=== PATIENT | female | born 1940 | race Caucasian/White ===

== ENCOUNTER 2020-10-03 14:04 | Inpatient (IN) | payer MEDICARE, OTHER ==
--- NOTE | 2020-10-03 15:35 | EDM.PDOC ---
<Tal Torres Brenda - Last Filed: 10/03/20 16:52> ED HPI GENERAL MEDICAL PROBLEM - General Chief Complaint: Cardiovascular Problem Stated Complaint: HEART ISSUES Time Seen by Provider: 10/03/20 15:00 Source of Information: Reports: Patient History Limitations: Reports: No Limitations - History of Present Illness INITIAL COMMENTS - FREE TEXT/NARRATIVE: 80 y/o F c/o chest tightness and sob x 2 days. Pt states she took 2 nitros yesterday with no change in cp. THe pain is constant across the lower R rib cage and non radiating. The sob is constant worse with movement and associated with a productive cough with white sputum. Hx of 1 vessel bypass 5+ years ago. Denies fever, cough, chills, drugs, etoh, abd pn, extremity pain, recent trauma. 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, IV/IO Chest Pain Score (Numeric/FACES): 7 - Related Data Allergies Allergy/AdvReac Type Severity Reaction Status Date / Time acetaminophen [From Percocet] Allergy Vomiting Verified 10/03/20 14:36 oxycodone HCl [From Percocet] Allergy Vomiting Verified 10/03/20 14:36 Home Meds: Home Meds Albuterol [Proventil Neb Soln] 1.25 mg NEB Q6HRRT PRN 09/04/15 [History] Aspirin 81 mg PO BRK 09/04/15 [History] Fluticasone Propion/Salmeterol [Advair 250-50 Diskus] 1 unit INH BID 09/04/15 [History] Levofloxacin 500 mg PO DAILY 09/04/15 [History] Nitroglycerin [IJP: Nitroglycerin] 0.4 mg SL ASDIRECTED PRN 09/04/15 [History] Triamterene/Hydrochlorothiazid [Triamterene-HCTZ 37.5-25 MG] 37.5 mg PO BID 09/04/15 [History] atenoloL [Atenolol] 50 mg PO DAILY 09/04/15 [History] Past Medical History HEENT History: Reports: Impaired Vision Cardiovascular History: Reports: Bypass, CAD, Heart Failure, High Cholesterol, Hypertension, [place], SOB on Exertion Respiratory History: Reports: Asthma, Bronchitis, Recurrent, COPD, Pneumonia, Recurrent Gastrointestinal History: Reports: Hiatal Hernia Genitourinary History: Reports: None 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: Musculoskeletal History: Reports: None Neurological History: Reports: None Psychiatric History: Reports: None Endocrine/Metabolic History: Reports: None Hematologic History: Reports: Blood Transfusion(s) Oncologic (Cancer) History: Reports: Breast, Other (See Below) Other Oncologic History: padmini mastectomy Dermatologic History: Reports: None - Infectious Disease History Infectious Disease History: Reports: None - Past Surgical History Head Surgeries/Procedures: Reports: None HEENT Surgical History: Reports: Cataract Surgery Cardiovascular Surgical History: Reports: Coronary Artery Bypass, Other (See Below) Other Cardiovascular Surgeries/Procedures: endarterectomy 2 years ago GI Surgical History: Reports: Colonoscopy, EGD Oncologic Surgical History: Reports: Mastectomy Social & Family History - Family History Family Medical History: No Pertinent Family History - Tobacco Use Tobacco Use Status *Q: Former Tobacco User Years of Tobacco use: 20 Packs/Tins Daily: 0 Used Tobacco, but Quit: Yes Month/Year Tobacco Last Used: - Caffeine Use Caffeine Use: Reports: Coffee - Recreational Drug Use Recreational Drug Use: No ED ROS GENERAL - Review of Systems Review Of Systems: Comprehensive ROS is negative, except as noted in HPI. ED EXAM, GENERAL - Physical Exam Exam: See Below Exam Limited By: No Limitations General Appearance: Alert, No Apparent Distress Eye Exam: Bilateral Eye: PERRL Nose: Normal Inspection, Normal Mucosa, No Blood Throat/Mouth: Normal Inspection, Normal Lips, Normal Teeth, Normal Gums, Normal Oropharynx, Normal Voice, No Airway Compromise Head: Atraumatic, Normocephalic Neck: Normal Inspection, Supple, Non-Tender Respiratory/Chest: Other (lungs diminshed throughout with expiratory wheezes and rhonci) Cardiovascular: Regular Rate, Rhythm, No Edema, No JVD Peripheral Pulses: 1+: Dorsalis Pedis (L), Dorsalis Pedis (R), 2+: Radial (L), Radial (R) GI/Abdominal: Soft, Non-Tender (Female) Exam: Deferred Rectal (Female) Exam: Deferred Back Exam: Normal Inspection, Full Range of Motion Extremities: Normal Inspection, Normal Range of Motion, Non-Tender, No Pedal Edema, Normal Capillary Refill Neurological: Alert, Oriented, Normal Cognition Psychiatric: Normal Affect, Normal Mood Skin Exam: Warm, Dry, Intact #1 Interpretation EKG Date: 10/03/20 Time: 14:23 Rhythm: Other (sinus) [place]: LAD-Left [place] Deviation P-Wave: Enlarged QRS: Other (ivcd) ST-T: Normal QT: Normal EKG Interpretation Comments: sinus with PVCs, RAH, LVH, Departure - Departure Disposition: Admitted As Inpatient 66 Clinical Impression: Hyponatremia, Hypokalemia, Atypical chest pain Sepsis Event Note (ED) - Evaluation Sepsis Screening Result: No Definite Risk <Ken Siddiqi - Last Filed: 10/03/20 21:14> Course - Vital Signs Text/Narrative:: Patient was endorsed at shift change, is an 80-year-old female who is frail in nature who presents emergency department today with complaint of chest pain. Patient has a bandlike chest pain around the lower part of her chest. She reports she took 2 nitroglycerin at home and had no improvement in symptoms. The patient was worked up here was found to have an EKG which showed no STEMI patient does have a left bundle block block she has an inverted T wave in aVL V1 and V2, patient was found to be severely hyponatremic and was started on hypertonic saline. The patient's daughter is now here we discussed at length with the patient's daughter about her symptoms, the patient's daughter reports t hat the patient started having a cough approximately 1 week ago and has had white productive sputum since, the patient confirms this, the patient has a negative Covid here did have a CT of the chest which shows no pulmonary infiltrates, the patient had a troponin earlier which was negative, we attempted to transfer the patient for severe hyponatremia to [facility], [facility], and [facility] all of these facilities were at capacity, we will repeat the troponin we discussed the case with Dr. Mitchell who graciously accepts the patient into admission here Last Recorded V/S: Last Vital Signs Temp 97 F 10/03/20 19:39 Pulse 88 10/03/20 19:39 Resp 20 10/03/20 19:39 BP 124/60 10/03/20 19:39 Pulse Ox 100 10/03/20 19:39 - Orders/Labs/Meds Orders: Active Orders 24 hr Category Date Time Status CULTURE BLOOD [BC] Stat Lab 10/03/20 16:19 Received Labs: Laboratory Tests 10/03/20 10/03/20 10/03/20 Range/Units 14:24 14:24 14:24 WBC 15.3 H (5.0-10.0) 10^3/uL RBC 5.24 (4.2-5.4) 10^6/uL Hgb 14.6 D (12.0-16.0) g/dL Hct 40.1 (37.0-47.0) % MCV 76.5 L D (80-100) fL MCH 27.9 (27.0-34.0) pg MCHC 36.4 H (33.0-35.0) g/dL Plt Count 445 D (150-450) 10^3/uL Neut % (Auto) 83.3 H (42.2-75.2) % Lymph % (Auto) 7.8 L (20.5-50.1) % [place] % (Auto) 8.8 H (2-8) % Eos % (Auto) 0.0 L (1.0-3.0) % Baso % (Auto) 0.1 (0.0-1.0) % PT 11.2 (9.0-12.0) SEC INR 1.1 (0.9-1.2) D-Dimer, Quantitative 2910 H (0-400) ng/mL Sodium 113 L* (136-145) mmol/L Potassium 2.8 L (3.5-5.1) mmol/L Chloride 73 L (98-107) mmol/L Carbon Dioxide 32 (21-32) mmol/L Anion Gap 10.8 (7-13) mEq/L BUN 31 H (7-18) mg/dL Creatinine 0.99 (0.55-1.02) mg/dL Est Cr Clr Drug Dosing 31.77 mL/min Estimated GFR (MDRD) 54 BUN/Creatinine Ratio 31.3 (No establ ref range) Glucose 168 H (70-99) mg/dL Lactic Acid (0.4-2.0) mmol/L Calcium 9.9 (8.5-10.1) mg/dL Magnesium (1.8-2.4) mg/dL Total Bilirubin 1.1 H (0.2-1.0) mg/dL AST 32 (15-37) U/L ALT 29 (14-59) U/L Alkaline Phosphatase 66 (46-116) U/L Troponin I High Sens 12 (<=51) pg/mL Total Protein 7.1 (6.4-8.2) g/dL Albumin 3.8 (3.4-5.0) g/dL Globulin 3.3 Albumin/Globulin Ratio 1.2 Urine Color (YELLOW) Urine Appearance (CLEAR) Urine pH (5.0-9.0) Ur Specific [place] (1.005-1.030) Urine Protein (NEGATIVE) Urine Glucose (UA) (NEGATIVE) Urine Ketones (NEGATIVE) Urine Occult Blood (NEGATIVE) Urine Nitrite (NEGATIVE) Urine Bilirubin (NEGATIVE) Urine Urobilinogen (0.2-1.0) mg/dL Ur Leukocyte Esterase (NEGATIVE) Urine RBC (0-5) /HPF Urine WBC (0-5/HPF) /HPF Ur Epithelial Cells (NOT SEEN) /HPF Amorphous Sediment (NOT SEEN) /HPF Urine Bacteria (0-FEW/HPF) /HPF Urine Mucus (NOT SEEN) /LPF Influenza Type A RNA (NEGATIVE) Influenza Type B RNA (NEGATIVE) SARS-CoV-2 RNA (LEI) (NEGATIVE) 10/03/20 10/03/20 10/03/20 Range/Units 14:24 14:24 16:50 WBC (5.0-10.0) 10^3/uL RBC (4.2-5.4) 10^6/uL Hgb (12.0-16.0) g/dL Hct (37.0-47.0) % MCV (80-100) fL MCH (27.0-34.0) pg MCHC (33.0-35.0) g/dL Plt Count (150-450) 10^3/uL Neut % (Auto) (42.2-75.2) % Lymph % (Auto) (20.5-50.1) % Charl[place] % (Auto) (2-8) % Eos % (Auto) (1.0-3.0) % Baso % (Auto) (0.0-1.0) % PT (9.0-12.0) SEC INR (0.9-1.2) D-Dimer, Quantitative (0-400) ng/mL Sodium (136-145) mmol/L Potassium (3.5-5.1) mmol/L Chloride (98-107) mmol/L Carbon Dioxide (21-32) mmol/L Anion Gap (7-13) mEq/L BUN (7-18) mg/dL Creatinine (0.55-1.02) mg/dL Est Cr Clr Drug Dosing mL/min Estimated GFR (MDRD) BUN/Creatinine Ratio (No establ ref range) Glucose (70-99) mg/dL Lactic Acid 2.2 H* (0.4-2.0) mmol/L Calcium (8.5-10.1) mg/dL Magnesium 1.3 L (1.8-2.4) mg/dL Total Bilirubin (0.2-1.0) mg/dL AST (15-37) U/L ALT (14-59) U/L Alkaline Phosphatase (46-116) U/L Troponin I High Sens (<=51) pg/mL Total Protein (6.4-8.2) g/dL Albumin (3.4-5.0) g/dL Globulin Albumin/Globulin Ratio Urine Color Yellow (YELLOW) Urine Appearance Slightly cloudy (CLEAR) Urine pH 7.0 (5.0-9.0) Ur Specific [place] 1.025 (1.005-1.030) Urine Protein Negative (NEGATIVE) Urine Glucose (UA) Negative (NEGATIVE) Urine Ketones 15 H (NEGATIVE) Urine Occult Blood Trace-intact H (NEGATIVE) Urine Nitrite Negative (NEGATIVE) Urine Bilirubin Negative (NEGATIVE) Urine Urobilinogen 0.2 (0.2-1.0) mg/dL Ur Leukocyte Esterase Negative (NEGATIVE) Urine RBC 0-5 (0-5) /HPF Urine WBC 0-5 (0-5/HPF) /HPF Ur Epithelial Cells Rare (NOT SEEN) /HPF Amorphous Sediment Few (NOT SEEN) /HPF Urine Bacteria Few (0-FEW/HPF) /HPF Urine Mucus Not seen (NOT SEEN) /LPF Influenza Type A RNA (NEGATIVE) Influenza Type B RNA (NEGATIVE) SARS-CoV-2 RNA (LEI) (NEGATIVE) 10/03/20 10/03/20 10/03/20 Range/Units 16:51 18:30 20:45 WBC (5.0-10.0) 10^3/uL RBC (4.2-5.4) 10^6/uL Hgb (12.0-16.0) g/dL Hct (37.0-47.0) % MCV (80-100) fL MCH (27.0-34.0) pg MCHC (33.0-35.0) g/dL Plt Count (150-450) 10^3/uL Neut % (Auto) (42.2-75.2) % Lymph % (Auto) (20.5-50.1) % [place] % (Auto) (2-8) % Eos % (Auto) (1.0-3.0) % Baso % (Auto) (0.0-1.0) % PT (9.0-12.0) SEC INR (0.9-1.2) D-Dimer, Quantitative (0-400) ng/mL Sodium (136-145) mmol/L Potassium (3.5-5.1) mmol/L Chloride (98-107) mmol/L Carbon Dioxide (21-32) mmol/L Anion Gap (7-13) mEq/L BUN (7-18) mg/dL Creatinine (0.55-1.02) mg/dL Est Cr Clr Drug Dosing mL/min Estimated GFR (MDRD) BUN/Creatinine Ratio (No establ ref range) Glucose (70-99) mg/dL Lactic Acid 1.3 (0.4-2.0) mmol/L Calcium (8.5-10.1) mg/dL Magnesium (1.8-2.4) mg/dL Total Bilirubin (0.2-1.0) mg/dL AST (15-37) U/L ALT (14-59) U/L Alkaline Phosphatase (46-116) U/L Troponin I High Sens 28 (<=51) pg/mL Total Protein (6.4-8.2) g/dL Albumin (3.4-5.0) g/dL Globulin Albumin/Globulin Ratio Urine Color (YELLOW) Urine Appearance (CLEAR) Urine pH (5.0-9.0) Ur Specific [place] (1.005-1.030) Urine Protein (NEGATIVE) Urine Glucose (UA) (NEGATIVE) Urine Ketones (NEGATIVE) Urine Occult Blood (NEGATIVE) Urine Nitrite (NEGATIVE) Urine Bilirubin (NEGATIVE) Urine Urobilinogen (0.2-1.0) mg/dL Ur Leukocyte Esterase (NEGATIVE) Urine RBC (0-5) /HPF Urine WBC (0-5/HPF) /HPF Ur Epithelial Cells (NOT SEEN) /HPF Amorphous Sediment (NOT SEEN) /HPF Urine Bacteria (0-FEW/HPF) /HPF Urine Mucus (NOT SEEN) /LPF Influenza Type A RNA Negative (NEGATIVE) Influenza Type B RNA Negative (NEGATIVE) SARS-CoV-2 RNA (LEI) Negative (NEGATIVE) Meds: Medications Discontinued Medications Generic Name Dose Route Start Last Admin Trade Name Freq PRN Reason Stop Dose Admin Sodium Chloride 500 mls @ 200 mls/hr 10/03/20 18:26 10/03/20 18:50 Sodium Chloride 3% IV 10/03/20 20:55 200 mls/hr ONETIME ONE Administration Iopamidol 100 ml 10/03/20 16:48 10/03/20 17:08 Iopamidol 755 Mg/Ml 100 Ml Bottle IVPUSH 10/03/20 16:49 100 ml ONETIME ONE Administration Metoclopramide HCl 10 mg 10/03/20 16:54 10/03/20 17:06 Metoclopramide 10 Mg/2 Ml Sdv IVPUSH 10/03/20 16:55 10 mg ONETIME ONE Administration Ondansetron HCl 4 mg 10/03/20 20:15 10/03/20 20:22 Ondansetron 4 Mg/2 Ml Sdv IVPUSH 10/03/20 20:16 4 mg ONETIME ONE Administration Potassium Chloride 40 meq 10/03/20 19:21 10/03/20 19:38 Potassium Chloride 10 Meq Tab.Er PO 10/03/20 19:22 40 meq ONETIME ONE Administration Departure - Departure Time of Disposition: 21:11 Condition: Fair Sepsis Event Note (ED) - Focused Exam Vital Signs: Vital Signs Temp Pulse Resp BP Pulse Ox 10/03/20 19:39 97 F 88 20 124/60 100 10/03/20 14:36 184/92 H 10/03/20 14:19 96.6 F L 87 24 H 100
--- NOTE | 2020-10-03 15:45 | CR ---
EXAMINATION: Chest 1V Frontal SEX: Female AGE: 80 years CLINICAL HISTORY: 80-year-old female with chest pain. Comparison exam 20 May 2009. Interpretation: Sternotomy. Osteoporosis, dorsolumbar scoliosis and hypertrophic spondylosis of the spine. Bilateral mastectomy. Normal cardiac silhouette. No pulmonary vascular congestion, alveolar edema or dependent pleural effusion. No new lung mass or hilar lymphadenopathy. No alveolar infiltrate, air bronchograms, or peripheral "groundglass" interstitial lung densities. No pneumothorax or pneumomediastinum. No free subdiaphragmatic air. AP bony thorax unremarkable. CONCLUSION: No acute new cardiopulmonary abnormality since May 2009 comparison CXR.
[2020-10-03 16:38] LABS: ANION GAP 10.8 mEq/L (7-13)
[2020-10-03] MEDS ORDERED: Iopamidol 755 Mg/ML 100 ML Bottle IVPUSH ONE (16:48)
[2020-10-03] MEDS ORDERED: Metoclopramide 10 MG/2 ML SDV IVPUSH ONE (16:54)
[2020-10-03 17:50] LABS: CORONAVIRUS COVID-19 NAA NEGATIVE (NEGATIVE)
[2020-10-03] MEDS ORDERED: Sodium Chloride 3% 500 ML IV ONE (18:26)
--- NOTE | 2020-10-03 18:47 | CT ---
PROCEDURE INFORMATION: Exam: CT Chest With Contrast; Diagnostic Exam date and time: 10/03/2020 5:50 PM Age: 80 years old Clinical indication: Other: D-dimer 2910, wbc 15.3; Additional info: Short of breath, elevated d-dimer TECHNIQUE: Imaging protocol: Diagnostic computed tomography of the chest with contrast. Radiation optimization: All CT scans at this facility use at least one of these dose optimization techniques: automated exposure control; mA and/or kV adjustment per patient size (includes targeted exams where dose is matched to clinical indication); or iterative reconstruction. Contrast material: [id number]; Contrast volume: 100 ml; Contrast route: INTRAVENOUS (IV); COMPARISON: 1. CT Chest w Cont 09/04/2015 8:20 PM 2. CTA Abd Pelv w Cont 04/15/2020 10:53:15 AM FINDINGS: Lungs: Moderate to severe emphysema. Mild bibasilar scarring. No consolidation or mass. Pleural spaces: Unremarkable. No pneumothorax. No pleural effusion. Heart: No cardiomegaly. No pericardial effusion. Mediastinal space: Small to moderate hiatal hernia. Pulmonary arteries: Nondiagnostic for pulmonary embolism due to poor contrast opacification of the pulmonary arteries. Aorta: The aorta is tortuous and demonstrates severe atherosclerotic calcification. No aortic aneurysm. The visualized portion of the known abdominal aortic aneurysm is grossly similar to the prior study. Lymph nodes: There is no evidence of lymphadenopathy. Adrenal glands: 2.7 cm left adrenal adenoma has not significantly changed compared to 2016. Bones/joints: No acute fracture or dislocation. Sternotomy wires in place. Soft tissues: Postsurgical changes from bilateral mastectomy and axillary node dissection. IMPRESSION: 1. Nondiagnostic for pulmonary embolism due to poor contrast opacification of the pulmonary arteries. 2. Chronic and incidental findings as above.
[2020-10-03] MEDS ORDERED: Potassium Chloride 10 MEQ Tab.ER PO ONE (19:21)
[2020-10-03] MEDS ORDERED: Ondansetron 4 MG/2 ML SDV IVPUSH ONE (20:15)
[2020-10-03] MEDS ORDERED: Sodium Chloride 0.9% 10 ML Syringe FLUSH PRN (22:31)
[2020-10-03] MEDS ORDERED: Acetaminophen 325 MG Tab PO PRN (22:31)
[2020-10-03] MEDS ORDERED: Magnesium Sulfate/Water 4 GM in Premix Bag 1 BAG IV ONE (22:37)
[2020-10-03] MEDS ORDERED: Sodium Chloride 3% 500 ML IV SCH (22:45)
[2020-10-03] MEDS ORDERED: hydrALAZINE 20 MG/ML SDV IVPUSH PRN (22:49)
--- NOTE | 2020-10-03 22:49 | PCM.SN.2 ---
- Free Text/Narrative Note: START OF DOCTOR EMAMIS HISTORY AND PHYSICAL / CONSULTATION NOTE Chief Complaint: Chest pain History of Present Illness: The patient is a 80-year-old female who presents to complain chest pain. The patient is a poor to fair historian at best and not forthcoming with details. She states she started feeling unwell approximately 5 days prior to hospitalization. She admits to onset of cough and symptoms of a cold. She admits to an episode of nausea as well as abdominal pain and dyspnea. The patient has fever, rigors, vomiting, wheeze, diarrhea, myalgia, lightheadedness, dizziness, diaphoresis, palpitations, since his rapid heartbeat, sensation near the heartbeat. She denies peripheral edema. Upon further questioning she indicates that she is having chest pain in the left lower chest describes a pressure. It does not radiate. As worst it rated 5 out of 10 currently rates 2 out of 10. Patient has known history of COPD for which she is O2 dependent 4 L, known history of CHF, and known history of coronary disease status post ND, status post CABG. She presents for further evaluation Surgical History: Right carotid endarterectomy, bilateral cataract surgery, bilateral mastectomy with axillary node dissection, CABG, hysterectomy Family History: Cancer, coronary artery disease, hypertension, hyperlipidemia Social History: Tobacco: Former smoker Alcohol: Denies Caffeine: Coffee Drugs: No known drug allergies Allergies: Patient has documented allergy to Tylenol which she denies. Patient is documented allergy to oxycodone however this causes nausea and this is intolerance not an allergy Code Status: DNI but request cardiac resuscitation pessary Pertinent Laboratory Results / Pertinent Radiology Results / Pertinent Diagnostic Results / Pertinent Vital Signs: Blood pressure 124/60, pulse 88, respirations 20, temperature 9 7 degrees, 1 her percent on 4 L, sodium 113, potassium 2.8, magnesium 1.3, total bilirubin is 1.1, white blood count 15.3, MCV 76.5 Physical Examination: General: -Alert -No acute distress -No dyspnea -No tachypnea -Frail-appearing Head: -Atraumatic -Normocephalic Eyes: -Pupils equally round and reactive to light and accommodation -Extraocular muscles intact Neurological: -Cranial nerves II-XII intact Neck: -No jugular venous distention -No thyromegaly -No cervical lymphadenopathy Heart: -Regular rate -Regular rhythm -No murmurs -No gallops -No rubs Lungs: -Scant bilateral wheeze -No rhonchi -No rales -Distant breath sounds bilaterally Abdomen: -Normal bowel sounds in all four quadrants -No rebound -No guarding -No tenderness Extremities: -2/4 pulse in all four extremities -No clubbing -No cyanosis -No edema -No calf tenderness present bilaterally -Negative Homans sign bilaterally Musculoskeletal: -5/5 bilateral upper extremity strength -5/5 bilateral lower extremity strength -Sensorium of bilateral upper extremities are equal and intact -Sensorium of bilateral lower extremities are equal and intact Additional Details / Additional Findings / Exceptions / Miscellaneous: Assessment / Plan: Chest pain, rule out ACS. Will monitor patient on telemetry and checks her cardiac enzymes and TSH and free T4. Patient is hypomagnesemic. In the morning will check fasting lipid panel and recheck EKG. Aspirin 81 mg p.o. daily plus nitrates 1/2 inch every 6 hours plus metoprolol 5 mg p.o. every 12 hours plus Lipitor 40 mg p.o. nightly Hyponatremia, chronic. This may be diuretic induced. Will monitor sodium levels every 4 hours. Check serum cortisol, TSH, free T4, urine osmolality, serum osmolality, ADH level. IV 3% sodium chloride at 15 mL/h Hypokalemia. Will monitor monitor potassium levels intermittently and supplement as necessary Hyperbilirubinemia. Will monitor LFTs periodically with CMP Hypomagnesemia. Will monitor magnesium levels intermittently and supplement as necessary Microcytosis. Check serum ferritin, iron panel, fecal occult blood History of abdominal aortic aneurysm. Outpatient monitoring with her primary care physician or with a provider Osteoporosis COPD, O2 dependent 4 L. Solu-Medrol 40 mg IV every 8 hours plus DuoNeb every 4 hours plus doxycycline 100 mg p.o. twice daily Congestive heart failure. Metoprolol 25 mg p.o. twice daily Coronary artery disease, status post ND, status post CABG. Aspirin 81 mg p.o. daily plus metoprolol 5 mg p.o. daily plus1/2 inch every 6 hours plus Lipitor 40 mg p.o. nightly Hyperlipidemia. Lipitor 40 mg p.o. nightly. Check fasting lipid panel Hypertension. Metoprolol 25 mg p.o. daily plus Nitropaste 1/2 inch every 6 hours Cholelithiasis, asymptomatic History of left adrenal mass. No changes documented on CT. No further monitoring/evaluation warranted Degenerative disc disease History of breast cancer, status post chemotherapy, status post radiation therapy, status post bilateral mastectomy with axillary node dissection. The patient Preethi that she is in remission and no longer requires to be monitored for this medical condition by Peripheral vascular disease with history of right carotid endarterectomy. Aspirin 81 mg p.o. daily plus Lipitor 40 mg p.o. nightly GI prophylaxis. Protonix 40 mg p.o. daily DVT prophylaxis. Lovenox 30 mg subcutaneously daily Disposition: Anticipate discharge in 48 to 72 hours. At the time of admission, the patient's home medications were pending input into the EMR/DHR system. Once their input, they will be reviewed and reconciled END OF DOCTOR EMAMIS HISTORY AND PHYSICAL / CONSULTATION NOTE
[2020-10-03] MEDS: Potassium Chloride 20 MEQ in Premix Bag 1 BAG IV SCH (23:28)
[2020-10-03] MEDS: Metoprolol Tartrate 25 MG Tab PO SCH (23:30)
[2020-10-03] MEDS: Nitroglycerin 2% Oint 1 GM UD Packet TOP SCH (23:33)
[2020-10-03] MEDS: methylPREDNISolone Sodium Succinate 40 MG/1 ML SDV IVPUSH SCH (23:34)
[2020-10-03] MEDS: Doxycycline Monohydrate 100 MG Cap PO SCH (23:38)
[2020-10-03] MEDS: Albuterol/Ipratropium 3.0-0.5 MG/3 ML Neb Soln NEB SCH (23:41)
[2020-10-04] MEDS: Potassium Chloride 20 MEQ in Premix Bag 1 BAG IV SCH ×3 (02:20→07:37)
[2020-10-04] MEDS: Albuterol/Ipratropium 3.0-0.5 MG/3 ML Neb Soln NEB SCH ×7 (02:52→22:00)
[2020-10-04] MEDS ORDERED: Sodium Chloride 0.9% 1,000 ML IV SCH ×4 (03:15→17:00)
[2020-10-04] MEDS: Ondansetron 4 MG/2 ML SDV IVPUSH PRN ×3 (03:17→19:46)
[2020-10-04] MEDS: Nitroglycerin 2% Oint 1 GM UD Packet TOP SCH ×3 (04:03→16:32)
[2020-10-04 04:46] LABS: SODIUM,NA 121 mmol/L (136-145)
[2020-10-04] MEDS ORDERED: Pantoprazole 40 MG Tab.CR PO SCH (06:00)
[2020-10-04] MEDS: methylPREDNISolone Sodium Succinate 40 MG/1 ML SDV IVPUSH SCH ×3 (06:14→21:23)
[2020-10-04] MEDS ORDERED: Potassium Chloride 20 MEQ in Premix Bag 1 BAG IV SCH (07:15)
--- NOTE | 2020-10-04 07:16 | PCM.SN.2 ---
- Free Text/Narrative Note: START OF DOCTOR YASIRMIS PROGRESS NOTE Subjective: The patient complains of dyspepsia. Aside from this endorses no complaints. She denies fever, rigors, nausea, vomiting, cough, wheeze, abdominal pain, chest pain. Regarding her respiratory status, she indicates that she feels that she is near her baseline respiratory status. I explained to the patient her current medical condition and plan of care and have answered all of her questions Objective: General: -Alert -No acute distress -No dyspnea -No tachypnea -Frail-appearing Heart: -Regular rate -Regular rhythm -No murmurs -No gallops -No rubs Lungs: -Bilateral wheeze present -No rhonchi -No rales Abdomen: -Normal bowel sounds in all four quadrants -No rebound -No guarding -No tenderness Extremities: -2/4 pulse in all four extremities -No clubbing -No cyanosis -No edema Additional Details / Additional Findings / Exceptions / Miscellaneous: Pertinent Laboratory Results / Pertinent Radiology Results / Pertinent Diagnostic Results / Pertinent Vital Signs: Respiratory rate 26. White blood cell count 16,000, sodium 121 Assessment / Plan: Chest pain, rule out ACS. Will monitor patient on telemetry and checks her cardiac enzymes and TSH and free T4. Patient is hypomagnesemic. In the morning will check fasting lipid panel and recheck EKG. Aspirin 81 mg p.o. daily plus nitrates 1/2 inch every 6 hours plus metoprolol 5 mg p.o. every 12 hours plus Lipitor 40 mg p.o. nightly Hyponatremia, chronic. This may be diuretic induced. Will monitor sodium levels every 4 hours. Check serum cortisol, TSH, free T4, urine osmolality, serum osmolality, ADH level. IV normal saline at 20 mL/h Hypokalemia. Will monitor monitor potassium levels intermittently and supplement as necessary Hyperbilirubinemia. Will monitor LFTs periodically with CMP Hypomagnesemia. Will monitor magnesium levels intermittently and supplement as necessary Microcytosis. Iron panel/ferritin within normal once. Fecal occult blood pending History of abdominal aortic aneurysm. Outpatient monitoring with her primary care physician or with a provider Osteoporosis COPD, O2 dependent 4 L. Solu-Medrol 40 mg IV every 8 hours plus DuoNeb every 4 hours plus doxycycline 100 mg p.o. twice daily Congestive heart failure. Metoprolol 25 mg p.o. twice daily Coronary artery disease, status post NM, status post CABG. Aspirin 81 mg p.o. daily plus metoprolol 5 mg p.o. daily plus1/2 inch every 6 hours plus Lipitor 40 mg p.o. nightly Hyperlipidemia. Lipitor 40 mg p.o. nightly. Check fasting lipid panel Hypertension. Metoprolol 25 mg p.o. daily plus Nitropaste 1/2 inch every 6 hours Cholelithiasis, asymptomatic History of left adrenal mass. No changes documented on CT. No further monitoring/evaluation warranted Degenerative disc disease History of breast cancer, status post chemotherapy, status post radiation therapy, status post bilateral mastectomy with axillary node dissection. The patient Preethi that she is in remission and no longer requires to be monitored for this medical condition by Peripheral vascular disease with history of right carotid endarterectomy. Aspirin 81 mg p.o. daily plus Lipitor 40 mg p.o. nightly GI prophylaxis. Protonix 40 mg p.o. daily DVT prophylaxis. Lovenox 30 mg subcutaneously daily Disposition: Anticipate discharge in 24 to 48 hours once the patient's serum sodium level normalizes or is near normalization END OF DOCTOR MAURICIOS PROGRESS NOTE
[2020-10-04] MEDS ORDERED: Aspirin 81 MG Tab.Chew PO SCH (08:00)
[2020-10-04] MEDS ORDERED: Enoxaparin 30 MG/0.3 ML Syringe SUBCUT SCH (09:00)
[2020-10-04] MEDS: Doxycycline Monohydrate 100 MG Cap PO SCH ×2 (09:05→21:22)
[2020-10-04] MEDS: Calcium Carbonate 500 MG Tab.Chew PO PRN ×4 (09:05→21:40)
[2020-10-04] MEDS: Metoprolol Tartrate 25 MG Tab PO SCH ×2 (09:08→17:20)
[2020-10-04] MEDS ORDERED: Sodium Chloride 3% 500 ML IV SCH (11:15)
--- NOTE | 2020-10-04 20:46 | PCM.SN.2 ---
- Free Text/Narrative Note: START OF DOCTOR EMAMIS DISCHARGE SUMMARY Date of Admission: October 03, 2020 Date of transfer: 8:45 PM on September 14, 2020 Primary Diagnosis: Chest pain, ACS ruled out Secondary Diagnosis: Hyponatremia, chronic but not to this extent. Likely diuretic induced Hypokalemia, resolved Hyperbilirubinemia Hypomagnesemia Microcytosis with iron panel and ferritin checked during this hospitalization being within normal limits History of abdominal aortic aneurysm Osteoporosis COPD, O2 dependent at 4 L Congestive heart failure, unknown ejection fraction is we have no echocardiogram reports at this facility Coronary artery disease, status post MS, status post CABG Hyperlipidemia Hypertension Cholelithiasis, asymptomatic History of left adrenal mass with no changes being documented on CT suggesting no further monitoring/evaluation warranted Degenerative disc disease History of breast cancer, status post chemotherapy, status post radiation therapy, status post bilateral mastectomy with axillary node dissection for which the patient indicates that she is in remission and no longer requires to be monitored for this medical condition by Peripheral vascular disease with history of right carotid endarterectomy Consultations: None Condition on transfer: Fair Disposition: The patient will be transferred to [facility] care of Dr. Allen, Hospitalist. Upon transfer, it is recommended that the patient be evaluated by endocrinology or nephrology for her diagnosis of hyponatremia Upon discharge from her hospital stay at outside hospital, it is recommended that the patient follow-up with her primary care physician or provider for monitoring of her history of abdominal aortic aneurysm Transfer medications: Atenolol 50 mg p.o. daily Aspirin 81 mg p.o. daily Protonix 40 mg p.o. daily for GI prophylaxis while she is on steroids and this is not for a history of dyspepsia/GERD Imdur 60 mg p.o. daily Solu-Medrol 40 mg IV every 8 hours Lovenox 30 mg subcutaneously daily for DVT prophylaxis during her hospitalization Doxycycline 100 mg p.o. twice daily started on October 11, 2020 for empiric treatment for her COPD exacerbation Lipitor 40 mg p.o. nightly DuoNeb every 4 hours END OF DOCTOR EMAMIS DISCHARGE SUMMARY
[2020-10-04] MEDS ORDERED: atorvaSTATin 20 MG Tab PO SCH (21:00)
[2020-10-04 23:03] VITALS: BP 146/61; PULSE 115
[2020-10-05] MEDS ORDERED: Isosorbide Mononitrate 60 MG Tab.ER PO SCH (06:00)
[2020-10-05] MEDS ORDERED: Atenolol 50 MG Tab PO SCH (09:00)
== END 2020-10-04 22:15 | DRG 641 ==
LOC: DL.ED 14:04 → DL.MS 21:56
PROVIDERS: ADMIT Internal Medicine; ATTEND Internal Medicine
DX: E87.1 Hypo-osmolality and hyponatremia (principal); E87.6 Hypokalemia; E83.42 Hypomagnesemia; E80.6 Other disorders of bilirubin metabolism; R07.89 Other chest pain; M81.0 Age-related osteoporosis without current pathological fracture; J44.9 Chronic obstructive pulmonary disease, unspecified; I50.9 Heart failure, unspecified; I25.10 Atherosclerotic heart disease of native coronary artery without angina pectoris; Z20.822 Contact with and (suspected) exposure to COVID-19; E78.5 Hyperlipidemia, unspecified; I11.0 Hypertensive heart disease with heart failure; K80.20 Calculus of gallbladder without cholecystitis without obstruction; E27.9 Disorder of adrenal gland, unspecified; H54.7 Unspecified visual loss; Z88.6 Allergy status to analgesic agent; E78.00 Pure hypercholesterolemia, unspecified; K44.9 Diaphragmatic hernia without obstruction or gangrene; I25.2 Old myocardial infarction; Z95.1 Presence of aortocoronary bypass graft; Z85.3 Personal history of malignant neoplasm of breast; Z86.79 Personal history of other diseases of the circulatory system; Z90.710 Acquired absence of both cervix and uterus; Z90.13 Acquired absence of bilateral breasts and nipples; Z79.82 Long term (current) use of aspirin; Z79.890 Hormone replacement therapy; Z79.899 Other long term (current) drug therapy; Z87.01 Personal history of pneumonia (recurrent); Z87.891 Personal history of nicotine dependence; Z99.81 Dependence on supplemental oxygen
CPT/HCPCS: 0240U; 36415; 71045; 71260; 80053; 80061; 81001; 82533; 82728; 83540; 83550; 83605; 83735; 83930; 83935; 84132; 84295; 84439; 84443; 84484; 84588; 85025; 85379; 85610; 87040; 93005; 94640; 96374; 96375; 99285-25; A9270-GY; J0360; J1650; J2405; J2765; J2920; J3475; J3480; J7030; J7131; J7620-GY; Q9967